=== PATIENT | female | born 1980 | race Two or more races ===

== ENCOUNTER 2021-07-13 10:16 | Emergency (ER) | payer MEDICAID ==
[~2021-07-13] VITALS: Ht 165.1 cm; Wt 72.6 kg
[2021-07-13 10:56] VITALS: BP 112/62
== END 2021-07-13 12:10 | disposition home or self-care (01) ==
LOC: ER 10:16
DX: S92.531A Displaced fracture of distal phalanx of right lesser toe(s), initial encounter for closed fracture (principal); F17.210 Nicotine dependence, cigarettes, uncomplicated; Z88.0 Allergy status to penicillin; W22.8XXA Striking against or struck by other objects, initial encounter; Y93.89 Activity, other specified; Y92.89 Other specified places as the place of occurrence of the external cause; Y99.8 Other external cause status
CPT/HCPCS: 73630

== ENCOUNTER 2021-11-12 10:16 | Emergency (ER) | payer MEDICAID ==
[~2021-11-12] VITALS: Ht 165.1 cm; Wt 73.0 kg
[2021-11-12 10:16] VITALS: BP 108/75
== END 2021-11-12 11:18 | disposition left against medical advice (07) ==
LOC: ER 10:16
DX: K08.89 Other specified disorders of teeth and supporting structures (principal); Z53.21 Procedure and treatment not carried out due to patient leaving prior to being seen by health care provider